=== PATIENT | female | born 1985 | race Two or more races ===

== ENCOUNTER 2016-11-18 02:41 | Inpatient (IN) | payer SELFPAY ==
[2016-11-18] MEDS ORDERED: ONDANSETRON HCL INJ/PF 4 MG/2 ML SDV IV ONE (04:02)
[2016-11-18] MEDS ORDERED: MORPHINE SULFATE 10 MG/ML INJ IV ONE ×2 (04:02→06:11)
[2016-11-18] MEDS ORDERED: NORMAL SALINE 1000 ML 1,000 ML IV ONE (04:03)
--- NOTE | 2016-11-18 04:04 | ER Document Report ---
ED GI/ - General Chief Complaint: Abdominal Pain Stated Complaint: ABDOMINAL PAIN Time seen by provider: 04:00 Notes: Patient is a 31-year-old female that comes emergency department for chief complaint of sharp pain in her mid to upper abdomen, pain does not radiate, patient states that she has not eaten today because she is afraid of the severe pain she gets, she states that she vomits when she eats at times, pain has been present for months but is significantly worse over the past 5 days or so. Patient states she was originally placed on omeprazole for this but the pain never went away. Patient states ibuprofen does help with the pain and lets her sleep. Patient denies flank pain, lower abdominal pain, fever, blood in her vomit. Patient denies any abdominal surgeries. Patient is currently on her menstrual cycle. Patient has had a tonsillectomy. TRAVEL OUTSIDE OF THE [place] IN LAST 30 DAYS: No - Related Data Allergies/Adverse Reactions: nickel [Nickel] Allergy (Verified 01/04/15 12:01) petrolatum,white [From Petroleum Jelly] Allergy (Verified 01/04/15 12:01) Past Medical History - General Information source: Patient - Social History Smoking Status: Current Every Day Smoker Frequency of alcohol use: Social Drug Abuse: None Lives with: Family Family History: Reviewed & Not Pertinent Patient has suicidal ideation: No Patient has homicidal ideation: No - Medical History Medical History: Negative Pulmonary Medical History: Denies: Hx Asthma Renal/ Medical History: Denies: Hx Peritoneal Dialysis GI Medical History: Denies: Hx Hepatitis Infectious Medical History: Denies: Hx Hepatitis, Hx HIV, Hx MRSA Past Surgical History: Reports: Hx Oral Surgery - tongue tied - Immunizations Immunizations up to date: No Hx Diphtheria, Pertussis, Tetanus Vaccination: Yes - 01/06/15 Review of Systems - Review of Systems Constitutional: No symptoms reported EENT: No symptoms reported Cardiovascular: No symptoms reported Respiratory: No symptoms reported Gastrointestinal: See HPI Genitourinary: No symptoms reported Female Genitourinary: No symptoms reported Musculoskeletal: No symptoms reported Skin: No symptoms reported Hematologic/Lymphatic: No symptoms reported Neurological/Psychological: No symptoms reported Physical Exam - Vital signs Vitals: Temp Pulse Resp BP Pulse Ox 98.2 F 94 18 139/82 H 97 11/18/16 02:44 11/18/16 02:44 11/18/16 02:44 11/18/16 02:44 11/18/16 02:44 Interpretation: Normal - General General appearance: Alert, Anxious In distress: Moderate - Patient cannot stay seated on the bed because of her discomfort, holding her upper abdomen - HEENT Head: Normocephalic, Atraumatic Eyes: Normal Pupils: PERRL - Respiratory Respiratory status: No respiratory distress Chest status: Nontender Breath sounds: Normal. No: Decreased air movement, Wheezing Chest palpation: Normal - Cardiovascular Rhythm: Regular. No: Tachycardia Heart sounds: Normal auscultation, S1 appreciated, S2 appreciated Murmur: No - Abdominal Inspection: Normal Distension: No distension Bowel sounds: Normal Tenderness: Tender - Patient very tender in the epigastric and right upper quadrant, otherwise unremarkable abdomen, Fontaine's sign, Guarding - Back Back: Normal, Nontender. No: Tender - Extremities General upper extremity: Normal inspection, Nontender, Normal color, Normal ROM , Normal temperature General lower extremity: Normal inspection, Nontender, Normal color, Normal ROM , Normal temperature, Normal weight bearing. No: Jossie's sign - Neurological Neuro grossly intact: Yes Cognition: Normal Orientation: AAOx4 Edu Coma Scale Eye Opening: Spontaneous Mayo Coma Scale Verbal: Oriented Mayo Coma Scale Motor: Obeys Commands Edu Coma Scale Total: 15 Speech: Normal Motor strength normal: LUE, RUE, LLE, RLE Sensory: Normal - Psychological Associated symptoms: Agitated - Skin Skin Temperature: Warm Skin Moisture: Dry Skin Color: Normal Course - Re-evaluation Re-evalutation: CBC, chemistry, lipase unremarkable. HCG negative. Ultrasound showing gallstones, no cholecystitis or obstructions. On reevaluation patient still appears uncomfortable, she states that she briefly had relief from pain but is immediately hurting again. Patient has not been able to eat anything at home. Patient requesting to speak to a Surgeon and hoping for surgery today. 11/18/16 07:[address] Lopez, surgery compensation agent, he will come to see the patient. - Vital Signs Vital signs: Temp Pulse Resp BP Pulse Ox 98.2 F 94 18 139/82 H 97 11/18/16 02:44 11/18/16 02:44 11/18/16 02:44 11/18/16 02:44 11/18/16 02:44 - Laboratory Result Diagrams: 11/18/16 04:25 11/18/16 04:25 Laboratory results interpreted by me: 11/18/16 04:25 AST 13 L Discharge - Discharge Clinical Impression: Epigastric pain, Right upper quadrant abdominal pain Cholelithiasis Qualifiers: Cholelithiasis location: gallbladder Cholecystitis presence: without cholecystitis Biliary obstruction: without biliary obstruction Qualified Code(s) : K80.20 - Calculus of gallbladder without cholecystitis without obstruction Condition: Stable Disposition: ADMITTED INPATIENT Admitting Provider: Surgicalist Unit Admitted: Surgical Floor
[2016-11-18 04:43] LABS: ABSOLUTE EOSINOPHILS # (AUTO) 0.4 10^3/uL (0.0-0.6); ABSOLUTE LYMPHOCYTES (AUTO) 2.6 10^3/uL (0.5-4.7); ABSOLUTE MONOCYTES (AUTO) 0.6 10^3/uL (0.1-1.4); ABSOLUTE NEUT (AUTO) 5.4 10^3/uL (1.7-8.2); BASOPHILS % (AUTO) 0.5 % (0-2); EOSINOPHILS % (AUTO) 4.3 % (0-6); HEMATOCRIT 43.3 % (36.0-47.0); HEMOGLOBIN 14.3 g/dL (12.0-15.5); HGB HCT DIFFERENCE -0.4; LYMPHOCYTES % (AUTO) 28.2 % (13-45); MEAN CORPUSCULAR HGB CONC 33.1 g/dL (32.0-36.0); MEAN CORPUSCULAR VOLUME 91 fl (80-97); MONOCYTES % (AUTO) 7.1 % (3-13); RED BLOOD COUNT 4.78 10^6/uL (3.72-5.28); RED CELL DISTRIBUTION WIDTH 12.6 % (11.5-14.0); SEGMENTED NEUTROPHILS % (AUTO) 59.9 % (42-78); WHITE BLOOD COUNT 9.1 10^3/uL (4.0-10.5)
[2016-11-18 04:58] LABS: ALANINE AMINOTRANSFERASE 18 U/L (9-52); ALBUMIN 3.9 g/dL (3.5-5.0); ALKALINE PHOSPHATASE 85 U/L (38-126); ANION GAP 10 (5-19); ASPARTATE AMINO TRANSFERASE 13 U/L (14-36); BLOOD UREA NITROGEN 11 mg/dL (7-20); CALCIUM 9.4 mg/dL (8.4-10.2); CARBON DIOXIDE 27 mmol/L (22-30); CHLORIDE 103 mmol/L (98-107); CREATININE RESULT 0.67 mg/dL (0.52-1.25); GLUCOSE 89 mg/dL (75-110); LIPASE 99.8 U/L (23-300); POTASSIUM 3.9 mmol/L (3.6-5.0); SODIUM 140.1 mmol/L (137-145); TOTAL PROTEIN 6.8 g/dL (6.3-8.2)
[2016-11-18] MEDS ORDERED: NORMAL SALINE 1000 ML 1,000 ML IV PRN (07:21)
--- NOTE | 2016-11-18 09:21 | PDOC H&P ---
History of Present Illness Admission Date/PCP: 11/18/16 08:02 History of Present Illness: LUIS MANUEL HOWARD is a 31 year old female who presents to the emergency department for intense right upper quadrant pain of one week's duration. She reports that over the last year she's had multiple attacks of right upper quadrant pain. They usually occur at night. They usually last for several hours. Occasionally she will vomit but reports this is due more to pain and a feeling of intense nausea. She was seen in the emergency department one year ago and diagnosed with gastritis. She has tried PPIs intermittently over this time including Nexium over the last week and a half consistently. Nexium has not relieved her pain. Over the last week the pain has been constant. Ibuprofen has provided only transient relief. She rates her pain at 7-10 out of 10. Over the last week she denies nausea, vomiting, fevers, chills , seizures, tremors, dizziness, lightheadedness, vision changes, double vision, chest pain, shortness of breath, sinus drainage, cough, leg pain, swelling, jaundice, acholic stools, tea-colored urine, blood in her stools or urine, pain with defecation or urination, itching. Review of systems is positive for pain radiating to her back from her right upper quadrant. Also positive for mild sinus congestion. She denies previous abdominal surgeries. Past Medical History Medical History: None Pulmonary Medical History: Denies: Asthma GI Medical History: Denies: Hepatitis Infectious Medical History: Denies: HIV, Methicillin-Resistant Staph Aureus Past Surgical History Past Surgical History: Reports: Other - Frenectomy age 13 Social History Information Source: Patient Lives with: Family Smoking Status: Current Every Day Smoker Cigarettes Packs Per Day: 0.5 Frequency of Alcohol Use: Occasional Hx Recreational Drug Use: No Drugs: None Hx Prescription Drug Abuse: No Family History Family History: DM, Hypertension, Malignancy Parental Family History Reviewed: Yes Children Family History Reviewed: Yes Sibling(s) Family History Reviewed.: Yes Medication/Allergy Home Medications: Comb No.42/Folic Acid [Prena1 Chew Tablet] 1 tab PO DAILY 01/01/15 Dextromethorphan HBr/Chlor-Mal [Robitussin Long-Acting Liq] 1 tsp PO PRN PRN 04/15 Omeprazole 40 mg PO QHS #30 capsule. 03/01/16 Allergies/Adverse Reactions: nickel [Nickel] Allergy (Verified 01/04/15 12:01) petrolatum,white [From Petroleum Jelly] Allergy (Verified 01/04/15 12:01) Review of Systems All systems: reviewed and no additional remarkable complaints except as stated Physical Exam Vital Signs: Temp Pulse Resp BP Pulse Ox 98.8 F 74 16 136/88 H 100 11/18/16 08:28 11/18/16 08:28 11/18/16 08:28 11/18/16 08:28 11/18/16 08:28 General appearance: PRESENT: mild distress Head exam: PRESENT: normocephalic Eye exam: PRESENT: EOMI. ABSENT: scleral icterus Mouth exam: PRESENT: tongue midline Neck exam: ABSENT: JVD, lymphadenopathy, tenderness, thyromegaly Respiratory exam: PRESENT: wheezes - Bilateral mild wheezing Cardiovascular exam: PRESENT: RRR GI/Abdominal exam: PRESENT: Fontaine's sign, soft, tenderness. ABSENT: distended , guarding, rebound Extremities exam: ABSENT: pedal edema, tenderness Musculoskeletal exam: ABSENT: deformity Neurological exam: PRESENT: alert, oriented to person, oriented to place, oriented to time, oriented to situation Psychiatric exam: PRESENT: appropriate affect, normal mood Skin exam: ABSENT: jaundice, rash Results Laboratory Results: Normal BMP and CBC. Impressions: Abdomen Ultrasound 11/18/16 04:09 IMPRESSION: Cholelithiasis. No biliary ductal dilation. Status: Image reviewed by me Assessment & Plan - Diagnosis (1) Symptomatic cholelithiasis Is this a current diagnosis for this admission?: YesPlan: Symptomatic cholelithiasis, probably some element of chronic cholecystitis given the severity and duration of her symptoms. We discussed laparoscopic cholecystectomy with cholangiogram in detail. Questions were answered. We discussed the risks, benefits and alternatives including , heart attack, stroke, blood clots in the legs, blood clots in lungs, pneumonia, bleeding, infection, hernia, bile leak, failure of symptoms to resolve, long-term diarrhea , damage to surrounding structures such as bladder, bowels, blood vessels or bile duct resulting in serious long-term health issues. We discussed the possibility of retained stone with need for further procedure such as ERCP. Understands and wishes to proceed.
[2016-11-18] MEDS ORDERED: CEFAZOLIN 2 GM/D5W RTU 2 GM/50 ML RTUPB IV ONE (09:42)
[2016-11-18] MEDS ORDERED: LIDOCAINE 1% INJ-PF (10 MG/ML) 30 ML SDV ONE (09:48)
[2016-11-18] MEDS ORDERED: BUPIVACAINE HCL 0.5%-EPI 1:200000 INJ/PF 30 ML VIAL ONE (09:49)
[2016-11-18] MEDS ORDERED: BUPIVACAINE HCL 0.25% /EPINEPHRINE INJ/PF 30 ML SDV ONE (09:50)
[2016-11-18] MEDS ORDERED: NEOSTIGMINE METHYLSULFATE 10 MG/10 ML VIAL ONE (10:08)
[2016-11-18] MEDS ORDERED: METOCLOPRAMIDE HCL INJ/PF 10 MG/2 ML SDV ONE (10:08)
[2016-11-18] MEDS ORDERED: GLYCOPYRROLATE INJ 0.4 MG/2 ML VIAL ONE (10:08)
[2016-11-18] MEDS ORDERED: ROCURONIUM BROMIDE INJ 50 MG/5 ML VIAL IV ONE (10:08)
[2016-11-18] MEDS ORDERED: SUCCINYLCHOLINE CHLORIDE INJ 200 MG/10 ML VIAL ONE (10:08)
[2016-11-18] MEDS ORDERED: DEXAMETHASONE SOD PHOSPHATE INJ 4 MG/1 ML VIAL ONE (10:08)
[2016-11-18] MEDS ORDERED: LIDOCAINE 2% INJ-PF (20 MG/ML) 10 ML AMPUL ONE (10:08)
[2016-11-18] MEDS ORDERED: ONDANSETRON HCL INJ/PF 4 MG/2 ML SDV ONE (10:08)
[2016-11-18] MEDS ORDERED: MORPHINE SULFATE 10 MG/ML INJ ONE (10:31)
[2016-11-18] MEDS ORDERED: SCOPOLAMINE HYDROBROMIDE 1.5 MG PATCH.TD72 ONE (10:31)
[2016-11-18] MEDS ORDERED: FAMOTIDINE INJ/PF 20 MG/2 ML SDV IV ONE (10:32)
[2016-11-18] MEDS ORDERED: ALBUTEROL SULFATE 0.083% NEB 2.5 MG/3 ML AMPUL NEB ONE (10:33)
[2016-11-18] MEDS ORDERED: CEFAZOLIN INJ 1 GM VIAL ONE (10:34)
[2016-11-18] MEDS ORDERED: PROPOFOL INJ 200 MG/20 ML VIAL IV ONE (10:39)
[2016-11-18] MEDS ORDERED: HYDROMORPHONE HCL INJ/PF 2 MG/ML AMPULE ONE (10:39)
[2016-11-18] MEDS ORDERED: FENTANYL CITRATE INJ/PF 250 MCG/5 ML AMPULE ONE (10:39)
[2016-11-18] MEDS ORDERED: MIDAZOLAM 2 MG/2 ML INJ ONE (10:39)
[2016-11-18] MEDS ORDERED: EPHEDRINE SULFATE INJ 50 MG/1 ML AMPULE ONE (10:39)
[2016-11-18] MEDS ORDERED: ACETAMINOPHEN 100 ML IV ONE (10:39)
[2016-11-18] MEDS ORDERED: DEXMEDETOMIDINE INJ 80 MCG/20 ML VIAL IV ONE (10:40)
[2016-11-18] MEDS ORDERED: ONDANSETRON HCL INJ/PF 4 MG/2 ML SDV IV PRN ×2 (12:02→14:49)
[2016-11-18] MEDS ORDERED: FENTANYL CITRATE INJ/PF 100 MCG/2 ML AMPUL IV PRN ×3 (12:02)
[2016-11-18] MEDS ORDERED: MEPERIDINE HCL/PF INJ 25 MG/1 ML DISP.SYRIN IV PRN (12:02)
[2016-11-18] MEDS ORDERED: MORPHINE SULFATE 10 MG/ML INJ IV PRN (12:02)
[2016-11-18] MEDS ORDERED: PROMETHAZINE HCL INJ 25 MG/1 ML VIAL IV PRN ×2 (12:02)
[2016-11-18] MEDS ORDERED: DIPHENHYDRAMINE HCL 50 MG/ML VIAL IV PRN (12:02)
--- NOTE | 2016-11-18 14:59 | Brief Operative Note ---
BRIEF OPERATIVE REPORT DATE OF SURGERY: 11/18/16 TIME OF SURGERY: 11:30 PREOPERATIVE DIAGNOSIS: Cholecystitis with cholelithiasis POSTOPERATIVE DIAGNOSIS: Acute and chronic cholecystitis with cholelithiasis SURGEON: RACH GARDNER 1ST MASTER RIGGER: NAVYA CLIFFORD FINDINGS: Acute and chronic cholecystitis with cholelithiasis COMPLICATIONS: None noted ESTIMATED BLOOD LOSS: 70 mL TISSUE REMOVED OR ALTERED: Gallbladder with stones TECHNICAL PROCEDURE: Laparoscopic attempt, converted to open cholecystectomy with cholangiogram.
[2016-11-18] MEDS ORDERED: FENTANYL CITRATE INJ/PF 100 MCG/2 ML AMPUL ONE (15:21)
--- NOTE | 2016-11-18 16:01 | Operative Report ---
Operative Report DATE OF SURGERY: 11/18/16 PREOPERATIVE DIAGNOSIS: Cholecystitis with cholelithiasis POSTOPERATIVE DIAGNOSIS: Acute and chronic cholecystitis with cholelithiasis OPERATION: Laparoscopic attempt, converted to open cholecystectomy with cholangiogram. SURGEON: RACH GARDNER 1ST PASTE THINNER: NAVYA HENDRICKS ANESTHESIA: GA TISSUE REMOVED OR ALTERED: Gallbladder with stones COMPLICATIONS: None noted ESTIMATED BLOOD LOSS: 70 mL INTRAOPERATIVE FINDINGS: Acute and chronic cholecystitis with cholelithiasis PROCEDURE: The patient was brought to the operative suite and placed supine on the OR table. Timeout was performed. Antibiotics were administered. Padding and positioning was appropriate. The patient was induced, intubated and maintained on general endotracheal anesthesia throughout the procedure. Patient was prepped and draped in the normal sterile fashion. The skin above the umbilicus was infiltrated with local anesthetic. A 5 mm incision was made. A [place] and Adson were used to dissect down to the level of the fascia, grasped the fascia and elevate it. The Veress needle was placed. Satisfactory water drop test was performed. Low flow insufflation was connected and yielded a high opening pressure. Insufflation was immediately stopped. The varies needle technique was repeated and again a satisfactory water drop test was performed. However, low flow insufflation again yielded high opening pressures. Cutdown technique was initiated. A transverse incision was extended. Army-Ong retractors were used to dissect down to the fascia. At this point there was also bleeding in the wound. The patient had a very thick abdominal wall and it was difficult to differentiate from where the bleeding originated, whether from the abdominal wall or intra-abdominal. At that point decision was made to convert to open surgery. Pressure was held on the bleeding while the incision was extended into a vertical midline incision. Dr. Hendricks was brought in to assist. Bovie electric cautery was used to dissect down to the fascia. A finger was inserted and the fascia was opened over a finger to protect the underlying contents. At this point the bleeding appeared to arise from 2 areas, the omentum as well as the inferior aspect of the incision itself in the muscle bed. Pressure was held on the muscle bed which tamponaded itself. The omental bleeder was identified and controlled with clamps and ties. The abdominal cavity was surveyed for bleeding. No other source of bleeding were seen. The retroperitoneum was visualized and showed no hematoma. The gallbladder was extremely large and distended with inflammation and dense adhesions. Otherwise the abdominal cavity appeared normal. Dense adhesions were then taken down from the fundus the gallbladder with electrocautery. Once the fundus the gallbladder was cleared, it was attempted to be grasped, but could not due to extreme distention. An 18-gauge needle with syringe was placed through the fundus and 20 mL of thick bilious material was withdrawn. The gallbladder was still extremely distended. The needle hole was enlarged slightly with Bovie electrocautery and approximately 200 mL of thick bilious material was suctioned free from the gallbladder. At that point a large Tori forcep was placed across the fundus to aid in retraction. Several large stones could be palpated within the gallbladder. A long process of meticulous dissection of dense adhesions was begun. Eventually, pericolonic and periduodenal attachments were dissected as the gallbladder was cleared down towards the infundibulum. 2 arterial as well as venous blood supplies were encountered and were controlled with combination of suture ligation as well as dividing and ligating. One arterial branch was in the typical position whereas another was in a more posterior position. Both were immediately adherent to the gallbladder. Dissection continued down to the infundibulum where very dense adhesions to the cystic duct were encountered. A stone was held in the infundibulum service and anatomical guide while the dissection of the cystic duct was performed. Then a small incision was made in the infundibulum of the gallbladder was made and cholangio-catheter was threaded down through the infundibulum into the cystic duct. It was held in place with a gentle clamp. Injectable saline easily flushed through this. Next a cholangiogram was performed, showing good filling of the biliary tree proximally and distally on down into the duodenum with no filling defects. The cholangiocatheter was removed. The very distal cystic duct was clamped and the gallbladder was removed, leaving only a 2 mm tab of infundibulum with the cystic duct visible in the center. The cystic duct was ligated with two 2-0 Vicryl ties. A gallbladder with several large stones palpable in the lumen was sent to pathology for further analysis. The field was irrigated and suctioned. The field was intact with no leakage of bile or blood. The abdominal cavity was surveyed and was unremarkable. The bleeding points in the muscle bed at the inferior portion of the incision and in the omentum were visualized and were hemostatic. The colon was inspected and was unremarkable. The small bowel was run from the terminal ileum to the ligament of Treitz and was unremarkable. A preliminary lap and instrument count was correct. The midline incision was closed with a looped PDS suture one working superior to inferior and one working inferior to superior and tying in the middle. The wound was irrigated and dried. The wound was hemostatic. The wound was closed loosely between gm with quarter -inch iodoform packed in between the gm. All lap needle sponge counts were correct. The patient tolerated procedure well and was taken to recovery in stable condition.
[2016-11-18] MEDS: POTASSI CL 20 MEQ/D5-1/2NS 1L 1,000 ML IV PRN (16:33)
[2016-11-18] MEDS: FENTANYL CITRATE INJ/PF 100 MCG/2 ML AMPUL IV PRN ×13 (17:25→18:16)
[2016-11-18] MEDS: ONDANSETRON HCL INJ/PF 4 MG/2 ML SDV IV PRN ×3 (17:31→18:16)
[2016-11-18] MEDS: DOCUSATE SODIUM 100 MG CAPSULE PO SCH (18:47)
[2016-11-18] MEDS: MORPHINE SULFATE 10 MG/ML INJ IV PRN (20:22)
[2016-11-19] MEDS: MORPHINE SULFATE 10 MG/ML INJ IV PRN ×5 (00:24→19:37)
[2016-11-19] MEDS: POTASSI CL 20 MEQ/D5-1/2NS 1L 1,000 ML IV PRN ×3 (00:46→18:38)
[2016-11-19] MEDS ORDERED: INFLUENZA ADLT QUAD (36MOS+) 2016-17 VAC 0.5 ML SYR IM PRN (04:53)
[2016-11-19 06:59] LABS: HEMATOCRIT 37.6 % (36.0-47.0); HGB HCT DIFFERENCE -0.4; MEAN CORPUSCULAR HEMOGLOBIN 29.9 pg (27.0-33.4); MEAN CORPUSCULAR VOLUME 91 fl (80-97); RED BLOOD COUNT 4.15 10^6/uL (3.72-5.28); RED CELL DISTRIBUTION WIDTH 12.6 % (11.5-14.0); WHITE BLOOD COUNT 11.3 10^3/uL (4.0-10.5)
[2016-11-19 07:04] LABS: HEMOGLOBIN 12.4 g/dL (12.0-15.5)
[2016-11-19 07:07] LABS: ALANINE AMINOTRANSFERASE 31 U/L (9-52); ALBUMIN 3.1 g/dL (3.5-5.0); ALKALINE PHOSPHATASE 62 U/L (38-126); ANION GAP 9 (5-19); ASPARTATE AMINO TRANSFERASE 21 U/L (14-36); BLOOD UREA NITROGEN 5 mg/dL (7-20); CALCIUM 8.9 mg/dL (8.4-10.2); CARBON DIOXIDE 24 mmol/L (22-30); CHLORIDE 104 mmol/L (98-107); CREATININE RESULT 0.63 mg/dL (0.52-1.25); GLUCOSE 103 mg/dL (75-110); POTASSIUM 4.1 mmol/L (3.6-5.0); SODIUM 137.3 mmol/L (137-145); TOTAL PROTEIN 5.6 g/dL (6.3-8.2)
[2016-11-19] MEDS: ENOXAPARIN SODIUM INJ 40 MG/0.4 ML DISP.SYRIN SUBCUT SCH (07:44)
[2016-11-19] MEDS: DOCUSATE SODIUM 100 MG CAPSULE PO SCH ×2 (09:30→17:08)
[2016-11-19] MEDS: HYDROCODONE/ACETAMINOPHEN 5-325 MG TABLET PO PRN ×2 (17:08→23:49)
[2016-11-20] MEDS: MORPHINE SULFATE 10 MG/ML INJ IV PRN (02:38)
[2016-11-20] MEDS: POTASSI CL 20 MEQ/D5-1/2NS 1L 1,000 ML IV PRN (04:50)
[2016-11-20] MEDS: HYDROCODONE/ACETAMINOPHEN 5-325 MG TABLET PO PRN ×3 (07:04→18:28)
[2016-11-20] MEDS: ENOXAPARIN SODIUM INJ 40 MG/0.4 ML DISP.SYRIN SUBCUT SCH (08:16)
--- NOTE | 2016-11-20 09:35 | PDOC PROGRESS REPORT ---
Subjective Subjective:: No nausea or vomiting. + Burping. No flatus. No BM. Physical Exam Vital Signs: Temp Pulse Resp BP Pulse Ox 98.0 F 79 18 111/65 100 11/19/16 23:28 11/19/16 23:28 11/19/16 23:28 11/19/16 23:28 11/19/16 23:28 Intake & Output 11/19/16 11/20/16 11/21/16 06:59 06:59 06:59 Intake Total 1065 6350 Output Total 650 3500 Balance 415 2850 Weight 104.1 kg 104.1 kg General appearance: PRESENT: no acute distress, morbidly obese Head exam: PRESENT: normocephalic GI/Abdominal exam: PRESENT: distended, hypoactive bowel sounds, soft, tenderness - Appropriate incisional tenderness., other - Midline incision dressing removed. Iodoform packing removed from between gm. Clean waffle dressing placed. Neurological exam: PRESENT: alert, oriented to situation Results Laboratory Results: 11/19/16 06:07 11/19/16 06:07 Impressions: Cholangiogram 11/18/16 00:00 IMPRESSION: INTRAOPERATIVE CHOLANGIOGRAM. Abdomen Ultrasound 11/18/16 04:09 IMPRESSION: Cholelithiasis. No biliary ductal dilation. Assessment & Plan - Diagnosis (1) Symptomatic cholelithiasis Is this a current diagnosis for this admission?: Yes (2) Cholelithiasis with acute on chronic cholecystitis Is this a current diagnosis for this admission?: YesPlan: Late note. Rounding late for 11/19/2016. Status post cholecystectomy on 2016. No significant bowel function yet. Remove Whittaker. Caution to go very slow with sips of liquids. Ambulate. I-S, SCDs, Lovenox.
[2016-11-20] MEDS: DOCUSATE SODIUM 100 MG CAPSULE PO SCH ×2 (11:02→17:10)
--- NOTE | 2016-11-20 17:53 | PROGRESS NOTE E ---
Progress Note NAME: LUIS MANUEL HOWARD : 1985 AGE: 31Y DATE: 11/20/2016 ROOM: 426 SUBJECTIVE: The patient is without complaints at this time, is tolerating clear liquids well. OBJECTIVE: VITAL SIGNS: Blood pressure 131/76. Temperature 98.6. Pulse 86. Respirations 18. Saturation is 100. LUNGS: The patient's lungs are clear anteriorly with good air entry. CARDIOVASCULAR SYSTEM: Pulse is regular. ABDOMEN: The abdomen is soft. Bowel sounds are present. There is mild incisional tenderness only. SKIN: Incision is clean, dry, and intact. ASSESSMENT: POSTOP DAY #2 STATUS POST OPEN CHOLECYSTECTOMY. PLAN: We will advance patient's diet and will initiate discharge planning in the a.m. DICTATING PHYSICIAN: ARTIS WAYNE M.D. [id number] PHY#: [id number] ID: [id number] JOB#: [id number] ACCT: [id number] cc:ARTIS WAYNE M.D. >
[2016-11-21] MEDS: HYDROCODONE/ACETAMINOPHEN 5-325 MG TABLET PO PRN ×3 (00:07→14:15)
[2016-11-21] MEDS: ENOXAPARIN SODIUM INJ 40 MG/0.4 ML DISP.SYRIN SUBCUT SCH (07:57)
[2016-11-21] MEDS: DOCUSATE SODIUM 100 MG CAPSULE PO SCH ×2 (09:05→17:08)
[2016-11-21 18:19] VITALS: BP 129/77
--- NOTE | 2016-11-22 01:23 | DISCHARGE SUMMARY E ---
Discharge Summary NAME: LUIS MANUEL HOWARD : 1985 AGE: 31Y ADMITTED: 11/18/2016 DISCHARGED: 11/21/2016 DISCHARGE DIAGNOSIS: Status post open cholecystectomy for biliary colic secondary to cholelithiasis. CONDITION: Stable. HISTORY OF PRESENT ILLNESS AND HOSPITAL COURSE: This 31-year-old female was admitted to the hospital with a one-week history of abdominal pain of significant intensity. The patient has had attacks going back one year, but this one was of greater intensity than previous attacks. The patient was seen in the emergency room where she was found to have mild to moderate tenderness in right upper quadrant. An ultrasound showed multiple stones in the gallbladder. The patient was taken to the operating room on 11/19/2016 where she underwent an open cholecystectomy, as she had multiple adhesions preventing the laparoscopic approach. The patient's postoperative course was uneventful. She was started on clear liquid diet immediately after surgery and diet was advanced accordingly. On 11/21/2016, on postop day #2, the patient is afebrile, vital signs are stable, abdomen is soft, bowel sounds are present. Abdomen shows mild incisional tenderness; however, her incisions are clean, dry and intact. The patient is now discharged home on Percocet and will be followed in the [facility] in 7-10 days. DICTATING PHYSICIAN: ARTIS WAYNE M.D. [id number] PHY#: [id number] ID: [id number] JOB#: [id number] ACCT: [id number] cc:ARTIS WAYNE M.D., IVAN PA >
== END 2016-11-21 18:45 | disposition home or self-care (01) | DRG 416 ==
LOC: ER 02:41 → UNDOADMIN 08:02 → EH 08:02 → INTOOBSV 14:49 → OBSVTOIN 14:49 → 4S 16:25
PROVIDERS: ADMIT Surgery; ATTEND Surgery
PROC: 0FJ44ZZ Inspection of Gallbladder, Percutaneous Endoscopic Approach (ICD-10-PCS; 2016-11-18)
PROC: 0FN40ZZ Release Gallbladder, Open Approach (ICD-10-PCS; 2016-11-18)
PROC: BF100ZZ Fluoroscopy of Bile Ducts using High Osmolar Contrast (ICD-10-PCS; 2016-11-18)
PROC: 0FT40ZZ Resection of Gallbladder, Open Approach (ICD-10-PCS; principal; 2016-11-18 11:15)
DX: K80.12 Calculus of gallbladder with acute and chronic cholecystitis without obstruction (principal); K66.0 Peritoneal adhesions (postprocedural) (postinfection); K82.8 Other specified diseases of gallbladder; F17.210 Nicotine dependence, cigarettes, uncomplicated
CPT/HCPCS: 36415; 74300; 76705; 790; 80053; 83690; 84703; 85025; 85027; 86850; 86900; 86901; 88304; 90686; 94640; 94799; 96361; 96374; 96375; 96376; 99285; J0131; J0330; J0690; J1100; J1170; J1650; J2250; J2270; J2405; J2704; J2765; J3010; J3480; J3490; J7030; Q9967; S0028

== ENCOUNTER 2016-11-23 15:02 | Observation (INO) | payer SELFPAY ==
[2016-11-23] MEDS: DEXTROSE 5%-LACTATED RINGERS 1,000 ML IV PRN ×2 (16:46→23:19)
[2016-11-23 16:47] LABS: ABSOLUTE EOSINOPHILS # (AUTO) 0.1 10^3/uL (0.0-0.6); ABSOLUTE LYMPHOCYTES (AUTO) 0.9 10^3/uL (0.5-4.7); ABSOLUTE MONOCYTES (AUTO) 0.4 10^3/uL (0.1-1.4); ABSOLUTE NEUT (AUTO) 8.3 10^3/uL (1.7-8.2); BASOPHILS % (AUTO) 0.3 % (0-2); EOSINOPHILS % (AUTO) 1.2 % (0-6); HEMATOCRIT 43.7 % (36.0-47.0); HEMOGLOBIN 14.3 g/dL (12.0-15.5); HGB HCT DIFFERENCE -0.8; LYMPHOCYTES % (AUTO) 9.1 % (13-45); MEAN CORPUSCULAR HEMOGLOBIN 29.7 pg (27.0-33.4); MEAN CORPUSCULAR HGB CONC 32.8 g/dL (32.0-36.0); MEAN CORPUSCULAR VOLUME 91 fl (80-97); RED BLOOD COUNT 4.83 10^6/uL (3.72-5.28); RED CELL DISTRIBUTION WIDTH 12.4 % (11.5-14.0); SEGMENTED NEUTROPHILS % (AUTO) 85.4 % (42-78); WHITE BLOOD COUNT 9.7 10^3/uL (4.0-10.5)
[2016-11-23 17:02] LABS: ALANINE AMINOTRANSFERASE 46 U/L (9-52); ALBUMIN 4.1 g/dL (3.5-5.0); ALKALINE PHOSPHATASE 94 U/L (38-126); ASPARTATE AMINO TRANSFERASE 36 U/L (14-36); BILIRUBIN,TOTAL 0.6 mg/dL (0.2-1.3); BLOOD UREA NITROGEN 13 mg/dL (7-20); CALCIUM 10.1 mg/dL (8.4-10.2); CARBON DIOXIDE 24 mmol/L (22-30); CREATININE RESULT 0.61 mg/dL (0.52-1.25); GLUCOSE 83 mg/dL (75-110); POTASSIUM 4.4 mmol/L (3.6-5.0); TOTAL PROTEIN 7.5 g/dL (6.3-8.2)
[2016-11-23] MEDS ORDERED: PROMETHAZINE HCL INJ 25 MG/1 ML VIAL IV PRN (17:04)
[2016-11-23 17:15] LABS: CHLORIDE 99 mmol/L (98-107); SODIUM 141.2 mmol/L (137-145)
[2016-11-23 17:18] LABS: ANION GAP 18 (5-19)
[2016-11-23] MEDS ORDERED: KETOROLAC TROMETHAMINE INJ/PF 30 MG/1 ML SDV ONE (17:18)
[2016-11-23] MEDS: KETOROLAC TROMETHAMINE INJ/PF 30 MG/1 ML SDV IV PRN (17:20)
[2016-11-23] MEDS: DOCUSATE SODIUM 100 MG CAPSULE PO SCH (19:01)
[2016-11-23] MEDS ORDERED: MAGNESIUM CITRATE 296 ML BOTTLE PO ONE (21:00)
[2016-11-24] MEDS: KETOROLAC TROMETHAMINE INJ/PF 30 MG/1 ML SDV IV PRN ×3 (00:28→22:15)
--- NOTE | 2016-11-24 09:58 | PDOC PROGRESS REPORT ---
Subjective Progress Note for:: 11/24/16 Subjective:: patient was direct admit from clinic yesterday for post-op constipation/ileus. Vomited last night after mag citrate. Reports passing gas last night and today but no BM yet. Denies N/V today. No fever/chills. Physical Exam Vital Signs: Temp Pulse Resp BP Pulse Ox 98.0 F 75 18 127/73 H 97 11/24/16 08:07 11/24/16 08:07 11/24/16 08:07 11/24/16 08:07 11/24/16 08:07 Intake & Output 11/23/16 11/24/16 11/25/16 06:59 06:59 06:59 Intake Total 1300 Output Total 1250 Balance 50 Weight 95.4 kg General appearance: PRESENT: no acute distress, obese GI/Abdominal exam: PRESENT: hypoactive bowel sounds, soft, tenderness - incision noninfected, abd min tender to palp on incision.. ABSENT: distended Neurological exam: PRESENT: alert, oriented to situation Psychiatric exam: PRESENT: appropriate affect, normal mood Skin exam: ABSENT: jaundice Results Laboratory Results: 11/23/16 16:30 11/23/16 16:30 11/23/16 11/23/16 16:30 16:30 WBC 9.7 RBC 4.83 Hgb 14.3 Hct 43.7 MCV 91 MCH 29.7 MCHC 32.8 RDW 12.4 Plt Count 376 Seg Neutrophils % 85.4 H Lymphocytes % 9.1 L Monocytes % 4.0 Eosinophils % 1.2 Basophils % 0.3 Absolute Neutrophils 8.3 H Absolute Lymphocytes 0.9 Absolute Monocytes 0.4 Absolute Eosinophils 0.1 Absolute Basophils 0.0 Sodium 141.2 Potassium 4.4 Chloride 99 Carbon Dioxide 24 Anion Gap 18 BUN 13 Creatinine 0.61 Est GFR ( Amer) > 60 Est GFR (Non-Af Amer) > 60 Glucose 83 Calcium 10.1 Total Bilirubin 0.6 AST 36 ALT 46 Alkaline Phosphatase 94 Total Protein 7.5 Albumin 4.1 Impressions: Acute Abdomen Series 11/23/16 00:00 IMPRESSION: Bibasilar atelectasis left greater than right Air-fluid levels in borderline distended stomach small bowel and colon, question ileus Assessment & Plan - Diagnosis (1) Ileus, postoperative Is this a current diagnosis for this admission?: YesPlan: NPO, place NGT to LIS if she vomits. Ambulate, IS, SCDs. Suppository.
[2016-11-24] MEDS ORDERED: BISACODYL 10 MG SUPP.RECT PR ONE (10:02)
[2016-11-24] MEDS: DOCUSATE SODIUM 100 MG CAPSULE PO SCH ×2 (11:44→17:37)
[2016-11-24] MEDS: DEXTROSE 5%-LACTATED RINGERS 1,000 ML IV PRN (19:00)
[2016-11-25] MEDS: DEXTROSE 5%-LACTATED RINGERS 1,000 ML IV PRN (04:53)
[2016-11-25] MEDS: DOCUSATE SODIUM 100 MG CAPSULE PO SCH ×2 (09:46→17:39)
--- NOTE | 2016-11-25 14:35 | PDOC PROGRESS REPORT ---
Subjective Progress Note for:: 11/25/16 Subjective:: Feeling significantly better. Has had several bowel movements today, mostly loose stool. Denies hematochezia. Has occasional abdominal pains that are described as "spasms". She is able to breath through the pain and is not currently taking pain medication. Ambulating to and from the bathroom. Would like to advance diet and go home. Physical Exam Vital Signs: Temp Pulse Resp BP Pulse Ox 98.2 F 76 19 120/77 100 11/25/16 12:24 11/25/16 12:24 11/25/16 12:24 11/25/16 12:24 11/25/16 12:24 Intake & Output 11/24/16 11/25/16 11/26/16 06:59 06:59 06:59 Intake Total 1300 1800 Output Total 1250 450 Balance 50 1350 Weight 95.4 kg 99.9 kg General appearance: PRESENT: no acute distress Respiratory exam: PRESENT: clear to auscultation humera. ABSENT: rales, rhonchi, wheezes Cardiovascular exam: PRESENT: RRR. ABSENT: diastolic murmur, rubs, systolic murmur GI/Abdominal exam: PRESENT: normal bowel sounds, soft. ABSENT: distended, guarding, tenderness Results Laboratory Results: 11/23/16 16:30 11/23/16 16:30 Impressions: Acute Abdomen Series 11/23/16 00:00 IMPRESSION: Bibasilar atelectasis left greater than right Air-fluid levels in borderline distended stomach small bowel and colon, question ileus Assessment & Plan - Diagnosis (1) Ileus, postoperative Is this a current diagnosis for this admission?: YesPlan: Advance to soft diet. If tolerated, discharge home later in the evening. - Time Time Spent with patient: 15-24 minutes Anticipated discharge: Home Within: within 24 hours
[2016-11-25] MEDS: KETOROLAC TROMETHAMINE INJ/PF 30 MG/1 ML SDV IV PRN (16:43)
[2016-11-25] MEDS ORDERED: ACETAMINOPHEN 325 MG TABLET ONE (17:01)
[2016-11-25 17:24] VITALS: BP 123/69
[2016-11-25] MEDS ORDERED: ACETAMINOPHEN 325 MG TABLET PO PRN (17:40)
--- NOTE | 2016-11-26 08:32 | PDOC DISCHARGE SUMMARY ---
General - Admit/Disc Date/PCP Admission Date/Primary Care Provider: 11/23/16 15:54 Discharge Date: 11/25/16 - Discharge Diagnosis (1) Ileus, postoperative Is this a current diagnosis for this admission?: YesSummary: The patient was seen in clinic on 11/23/2016 and diagnosed with postop ileus and constipation. The patient was direct admitted from clinic to the hospital. She did vomit once in the hospital after taking magnesium citrate, but otherwise had no further vomiting and had return of bowel function with multiple bowel movements. Diet was gradually advanced. Patient did well, was ambulating, defecating urinating without difficulties. Minimal expected postop pain was managed with combination of narcotics and nonnarcotics. Patient was discharged home on the evening of 11/25/2016 on soft diet. - Additional Information Discharge Diet: Full Liquids Discharge Activity: No Lifting Over 10 Pounds, Walk Frequently Home Medications: Hydrocodone/Acetaminophen [[place] 5-325 mg Tablet] 1 tab PO Q4H PRN #24 tablet History of Present Illness History of Present Illness: LUIS MANUEL HOWARD is a 31 year old female. The patient was seen in clinic on 11/23/2016 and diagnosed with postop ileus and constipation. The patient was direct admitted from clinic to the hospital. She did vomit once in the hospital after taking magnesium citrate, but otherwise had no further vomiting and had return of bowel function with multiple bowel movements. Diet was gradually advanced. Patient did well, was ambulating, defecating urinating without difficulties. Minimal expected postop pain was managed with combination of narcotics and nonnarcotics. Patient was discharged home on the evening of 11/25/2016 on soft diet. Hospital Course Hospital Course: The patient was seen in clinic on 11/23/2016 and diagnosed with postop ileus and constipation. The patient was direct admitted from clinic to the hospital. She did vomit once in the hospital after taking magnesium citrate, but otherwise had no further vomiting and had return of bowel function with multiple bowel movements. Diet was gradually advanced. Patient did well, was ambulating, defecating urinating without difficulties. Minimal expected postop pain was managed with combination of narcotics and nonnarcotics. Patient was discharged home on the evening of 11/25/2016 on soft diet. Physical Exam Vital Signs: Temp Pulse Resp BP Pulse Ox 98.1 F 78 19 123/69 100 11/25/16 19:33 11/25/16 19:33 11/25/16 19:33 11/25/16 16:26 11/25/16 19:33 Intake & Output 11/25/16 11/26/16 11/27/16 06:59 06:59 06:59 Intake Total 1800 Output Total 450 Balance 1350 Weight 99.9 kg Physical Exam: See progress note from earlier on the day of discharge. At the time of discharge the patient was reexamined: Not in acute distress, alert, oriented, had good bowel sounds and abdomen was soft, nontender, nondistended. Midline abdominal incision with gm, noninfected. Results Laboratory Results: 11/23/16 16:30 11/23/16 16:30 Impressions: Acute Abdomen Series 11/23/16 00:00 IMPRESSION: Bibasilar atelectasis left greater than right Air-fluid levels in borderline distended stomach small bowel and colon, question ileus Qualifiers PATEINT BEING DISCHARGED WITH ANY OF THE FOLLOWING DIAGNOSIS?: No Plan Discharge Plan: Call surgery clinic in the morning for follow-up appointment for staple removal and wound check.
== END 2016-11-25 20:00 | disposition home or self-care (01) ==
LOC: UNDOADMIN 15:02 → 2S 15:02 → INTOOBSV 15:54 → 2S 15:54
DX: K91.3 Postprocedural intestinal obstruction (principal); K59.00 Constipation, unspecified
CPT/HCPCS: 36415; 85025; 80076; 80048; 74022; 94799; G0378 ×3; G0379; J3490; J1885 ×2; J2550

== ENCOUNTER 2018-10-12 22:41 | Emergency (ER) | payer BC, MEDICAID ==
[2018-10-13] MEDS ORDERED: HYDROCODONE/ACETAMINOPHEN 10-325 MG TABLET PO ONE (01:12)
[2018-10-13] MEDS ORDERED: DEXAMETHASONE 4 MG TABLET PO ONE (01:12)
--- NOTE | 2018-10-13 02:08 | ER Document Report ---
HPI - HPI Patient complains to provider of: sore throat Time Seen by Provider: 10/13/18 00:57 Pain Level: 3 Context: Patient is a 33-year-old female presents to the emergency department complaining of subjective fever and sore throat for the last 3 days. Patient denies cough, congestion, nausea, vomiting or diarrhea, shortness of breath, chest pain. Patient states the last time she took Tylenol for pain was at 1300 Hours. Past medical history: None Medications: None Allergies: None - CONSTITUTIONAL Constitutional: REPORTS: Fever, Chills - EENT EENT: REPORTS: Sore Throat - x3 days - REPRODUCTIVE Reproductive: DENIES: : Past Medical History - General Information source: Patient - Social History Smoking Status: Current Every Day Smoker Frequency of alcohol use: Occasional Family History: DM, Hypertension, Malignancy Patient has suicidal ideation: No Patient has homicidal ideation: No Pulmonary Medical History: Denies: Hx Asthma Renal/ Medical History: Denies: Hx Peritoneal Dialysis GI Medical History: Denies: Hx Hepatitis Psychiatric Medical History: Denies: Hx Depression Infectious Medical History: Denies: Hx Hepatitis, Hx HIV, Hx MRSA Past Surgical History: Reports: Hx Cholecystectomy, Hx Oral Surgery - tongue tied, Other - Frenectomy age 13 - Immunizations Immunizations up to date: No Hx Diphtheria, Pertussis, Tetanus Vaccination: Yes - 01/06/15 Vertical Provider Document - CONSTITUTIONAL Agree With Documented VS: Yes Notes: GENERAL: Alert, interacts well. No acute distress. Patient does not have a muffled voice HEAD: Normocephalic, atraumatic. EYES: Pupils equal, round, and reactive to light. Extraocular movements intact. ENT: Oral mucosa moist, tongue midline. Nares patent, TM's intact, Not erythematous, nonbulging. Pharynx erythematous with +3 tonsils bilaterally, no exudate or palatal petechiae noted NECK: Full range of motion. Supple. Trachea midline. Positive anterior cervical lymphadenopathy noted LUNGS: Clear to auscultation bilaterally, no wheezes, rales, or rhonchi. No respiratory distress. HEART: Regular rate and rhythm. No murmur ABDOMEN: Soft, non-tender. Non-distended. Bowel sounds present in all 4 quadrants. EXTREMITIES: Moves all 4 extremities spontaneously. No edema, normal radial and dorsalis pedis pulses bilaterally. No cyanosis. BACK: no cervical, thoracic, lumbar midline tenderness. No saddle anesthesia, normal distal neurovascular exam. NEUROLOGICAL: Alert and oriented x3. Normal speech. cranial nerves II through XII grossly intact. PSYCH: Normal affect, normal mood. SKIN: Warm, dry, normal turgor. No rashes or lesions noted. - INFECTION CONTROL TRAVEL OUTSIDE OF THE [place] IN LAST 30 DAYS: No Course - Re-evaluation Re-evalutation: Patient states she feels better after treatment at the emergency room. Rapid strep was negative, sent for culture. Discussed symptomatic treatments at home. Patient continues to be non-tachycardic, not hypotensive, afebrile in the emergency room. Close return precautions discussed. - Vital Signs Vital signs: Temp Pulse Resp BP Pulse Ox 98.4 F 76 17 129/83 H 97 10/12/18 22:56 10/12/18 22:56 10/12/18 22:56 10/12/18 22:56 10/12/18 22:56 Discharge - Discharge Clinical Impression: Pharyngitis Qualifiers: Pharyngitis/tonsillitis etiology: unspecified etiology Qualified Code(s): J02.9 - Acute pharyngitis, unspecified Condition: Stable Disposition: HOME, SELF-CARE Instructions: Sore Throat ([facility]) Additional Instructions: As we discussed your strep test came back negative at this time. It was sent for culture and if it grows bacteria the hospital will call you. They will also call you in antibiotics to any pharmacy. You should continue to take Tylenol and Motrin at home for pain or fever. Please stay well hydrated with Gatorade or Pedialyte. Please follow-up with your primary care provider in the next 24-48 hours. Please return to the emergency room for any other concerning symptoms. Forms: Return to Work
[2018-10-13 02:10] VITALS: BP 123/78
== END 2018-10-13 02:33 | disposition home or self-care (01) ==
LOC: ER 22:41
DX: J02.9 Acute pharyngitis, unspecified (principal); R50.9 Fever, unspecified; F17.200 Nicotine dependence, unspecified, uncomplicated; B20 Human immunodeficiency virus [HIV] disease
CPT/HCPCS: 87070; 87077; 87880; 99283

== ENCOUNTER 2019-09-29 10:47 | Emergency (ER) | payer MEDICAID ==
[2019-09-29] MEDS ORDERED: ACETAMINOPHEN 325 MG TABLET PO ONE (11:10)
--- NOTE | 2019-09-29 11:15 | ER Document Report ---
HPI - HPI Patient complains to provider of: rash, sore throat Time Seen by Provider: 09/29/19 11:10 Pain Level: Denies Context: Patient is a 34-year-old female presents to the emergency department with a generalized rash. Patient voices she started with a generalized rash yesterday. States she did take Benadryl twice which did not help the rash at all. Patient voices it does not itch or irritate her. States she honestly would not have k nown it was there until she looked at her arms. States is on her arms, back, chest and bilateral lower extremities. It does spare the palms and soles. Patient voices this morning she woke up and saw some "white spots" on her tonsils and noted that they were a little swollen. Patient voices she thought she may be having allergic reaction which is why she presents to the emergency room. Patient voices no new soaps, detergents, Perfumes, pets, foods. Patient voices she did eat pineapple yesterday but states she eats pineapple "all the time." Patient is currently denying any respiratory distress, vomiting, diarrhea, chest pain, abdominal pain, dysuria, fevers. - REPRODUCTIVE Reproductive: DENIES: : Past Medical History - General Information source: Patient - Social History Smoking Status: Unknown if Ever Smoked Chew tobacco use (# tins/day): No Frequency of alcohol use: Social Drug Abuse: None Family History: DM, Hypertension, Malignancy Patient has suicidal ideation: No Patient has homicidal ideation: No Pulmonary Medical History: Denies: Hx Asthma Renal/ Medical History: Denies: Hx Peritoneal Dialysis GI Medical History: Denies: Hx Hepatitis Psychiatric Medical History: Denies: Hx Depression Infectious Medical History: Denies: Hx Hepatitis, Hx HIV, Hx MRSA Past Surgical History: Reports: Hx Cholecystectomy, Hx Oral Surgery - tongue tied, Other - Frenectomy age 13 - Immunizations Immunizations up to date: No Hx Diphtheria, Pertussis, Tetanus Vaccination: Yes - 01/06/15 Vertical Provider Document - CONSTITUTIONAL Agree With Documented VS: Yes Notes: GENERAL: Alert, interacts well. No acute distress. HEAD: Normocephalic, atraumatic. EYES: Pupils equal, round, and reactive to light. Extraocular movements intact. ENT: Oral mucosa moist, tongue midline. Nares patent, TM's intact, nonerythematous, nonbulging bilaterally. Pharynx erythematous, tonsils +2 bilaterally with exudate noted bilaterally. No palatal petechiae noted. NECK: Full range of motion. Supple. Trachea midline. No lymphadenopathy appreciated LUNGS: Clear to auscultation bilaterally, no wheezes, rales, or rhonchi. No respiratory distress. HEART: Regular rate and rhythm. No murmur ABDOMEN: Soft, non-tender. Non-distended. Bowel sounds present in all 4 quadrants. EXTREMITIES: Moves all 4 extremities spontaneously. No edema, normal radial and dorsalis pedis pulses bilaterally. No cyanosis. BACK: no cervical, thoracic, lumbar midline tenderness. No saddle anesthesia, normal distal neurovascular exam. NEUROLOGICAL: Alert and oriented x3. Normal speech. [cranial nerves II through XII grossly intact]. PSYCH: Normal affect, normal mood. SKIN: Warm, dry, normal turgor. Macular rash noted in bilateral forearms, back, chest, bilateral lower extremities. Does spare palms and soles. Is not on patient's face. Blanching, nonraised. - INFECTION CONTROL TRAVEL OUTSIDE OF THE [place] IN LAST 30 DAYS: No Course - Re-evaluation Re-evalutation: 09/29/19 12:34 Laboratory 09/29/19 11:10 Group A Strep Rapid NEGATIVE Patient's rapid strep is negative. Discussed negative results and sending strep for culture with patient at bedside. Patient continues without respiratory distress, vomiting. Patient stable for discharge. - Vital Signs Vital signs: Temp Pulse Resp BP Pulse Ox 98.0 F 86 16 152/89 H 98 09/29/19 10:52 09/29/19 10:52 09/29/19 10:52 09/29/19 10:52 09/29/19 10:52 Discharge - Discharge Clinical Impression: Viral exanthem, Sore throat (viral) Condition: Stable Disposition: HOME, SELF-CARE Instructions: Viral Syndrome ([facility]), Viral Rash ([facility]), Sore Throat ([facility]) Additional Instructions: As we discussed you have been seen and treated in the emergency department for a sore throat and viral rash. I do not think this is an allergic reaction. Does not appear to be allergic in nature and you are not having any other allergy symptoms. Like we discussed your rapid strep test was negative although we do send it for culture. The hospital will call you should the culture come back positive. Please follow-up with your primary care provider in the next 12 to 24 hours. Return to the emergency room for any concerns. Forms: Return to Work
[2019-09-29 12:56] VITALS: BP 152/82
== END 2019-09-29 12:54 | disposition home or self-care (01) ==
LOC: ER 10:47
DX: B09 Unspecified viral infection characterized by skin and mucous membrane lesions (principal); J02.8 Acute pharyngitis due to other specified organisms; B97.89 Other viral agents as the cause of diseases classified elsewhere
CPT/HCPCS: 87070; 87880; 87077; J3490; 99283